=== PATIENT | male | born 1990 | race Caucasian/White ===

== ENCOUNTER 2019-12-20 09:02 | Emergency (ER) | payer OTHER ==
[~2019-12-20] VITALS: Ht 193 cm; Wt 95.2 kg
[2019-12-20] MEDS ORDERED: KEFLEX500 MG PO (11:23)
== END 2019-12-20 11:38 | disposition home or self-care (01) ==
LOC: ED 09:02
DX: S61.212A Laceration without foreign body of right middle finger without damage to nail, initial encounter (principal); S61.412A Laceration without foreign body of left hand, initial encounter; X58.XXXA Exposure to other specified factors, initial encounter
CPT/HCPCS: 12002; 99282

== ENCOUNTER 2024-02-04 14:59 | Emergency (ER) | payer OTHER ==
[~2024-02-04] VITALS: Ht 193 cm; Wt 96.9 kg
[~2024-02-04 14:59] MED LIST: CIPRO500 MG PO; HYDROCODON-ACE1 EA10 PO; KEFLEX500 MG PO; METRONIDAZOLE500 MG PO
[2024-02-04] MEDS ORDERED: ACETAMINOPHEN 500 MG TAB PO ONE (16:00)
[2024-02-04 17:08] VITALS: BP 122/88
== END 2024-02-04 17:08 | disposition home or self-care (01) ==
LOC: ED 14:59
DX: S06.9X1A Unspecified intracranial injury with loss of consciousness of 30 minutes or less, initial encounter (principal); S41.112A Laceration without foreign body of left upper arm, initial encounter; V86.59XA Driver of other special all-terrain or other off-road motor vehicle injured in nontraffic accident, initial encounter
CPT/HCPCS: 12002; 70450; 99284-25; A9270

== ENCOUNTER 2024-09-06 12:08 | Emergency (ER) | payer SELFPAY ==
[~2024-09-06] VITALS: Ht 193 cm; Wt 103.4 kg
[2024-09-06] MEDS ORDERED: FLUOXETINE HCL10 M1 PO (14:02)
[2024-09-06 15:38] VITALS: BP 146/97
== END 2024-09-06 15:38 | disposition home or self-care (01) ==
LOC: ED 12:08
DX: R20.2 Paresthesia of skin (principal); Z88.0 Allergy status to penicillin; Z79.899 Other long term (current) drug therapy
CPT/HCPCS: 99283

== ENCOUNTER 2024-12-05 20:41 | Emergency (ER) | payer SELFPAY ==
[~2024-12-05] VITALS: Ht 193 cm; Wt 107.9 kg
[~2024-12-05 20:41] MED LIST changes: +FLUOXETINE HCL10 M1 PO
[2024-12-05] MEDS ORDERED: ondansetron HCL 4 MG/2 ML VIAL IV ONE (21:30)
[2024-12-05 21:47] LABS: BASOPHILS 0.6 % (0-2); EOSINOPHILS 2.6 % (0-6); HEMATOCRIT 46.4 % (35.0-50.0); HEMOGLOBIN 16.2 g/dL (12.0-18.0); MCHC 34.9 g/dl (30-36); MCV 91.6 fl (81-99); MONOCYTES 14.3 % (0-12); NEUTROPHILS 53.5 % (39-80); PLATELET COUNT 269 K/uL (140-440); RBC 5.07 M/ul (4.3-5.7); RDW 12.7 (10.5-15.0)
[2024-12-05 21:57] LABS: BILIRUBIN, URINE NEGATIVE (negative); BLOOD/HGB, URINE NEGATIVE (Negative); KETONE, URINE NEGATIVE (Negative); LEUK ESTERASE, URINE NEGATIVE (negative); NITRITE, URINE NEGATIVE (negative); PH, URINE 5.5 (5-7)
[2024-12-05 21:58] LABS: CANNABINOID, URINE NEGATIVE (NEGATIVE)
[2024-12-05] MEDS ORDERED: FAMOTIDINE 20 MG/ 2 ML VIAL IV ONE (22:00)
[2024-12-05] MEDS ORDERED: LACTATED RINGER'S 1,000 ML IV ONE (22:00)
[2024-12-05] MEDS ORDERED: KETOROLAC TROMETHAMINE 30 MG/ML VIAL IV ONE (22:00)
[2024-12-05 22:01] LABS: ALBUMIN 4.1 g/dL (3.4-5.0); ALBUMIN/GLOBULIN RATIO 1.03 (1.1-2.4); ANION GAP 15.8 (7-21); BILIRUBIN, TOTAL 0.4 mg/dL (0.2-1.0); BUN/CREATININE RATIO 15.58 (6.0-28.6); CALCIUM 8.7 mg/dL (8.5-10.1); CREATININE, SERUM 0.77 mg/dL (0.70-1.30); POTASSIUM 3.8 mmol/L (3.5-5.1); PROTEIN, TOTAL 8.1 g/dL (6.4-8.2)
[2024-12-05 22:12] LABS: AMPHETAMINES, URINE NEGATIVE (NEGATIVE); BARBITURATES, URINE NEGATIVE (NEGATIVE); BENZODIAZEPINE, URINE NEGATIVE (NEGATIVE); BUPRENORPHINE, URINE NEGATIVE (NEGATIVE); COCAINE, URINE NEGATIVE (NEGATIVE); ECSTASY, URINE NEGATIVE (NEGATIVE); FENTANYL, URINE NEGATIVE (NEGATIVE); METHADONE, URINE NEGATIVE (NEGATIVE); OPIATES, URINE NEGATIVE (NEGATIVE); OXYCODONE, URINE NEGATIVE (NEGATIVE); PHENCYCLIDINE, URINE NEGATIVE (NEGATIVE)
[2024-12-05] MEDS ORDERED: CIPROFLOXACIN 500 MG TAB PO ONE (22:30)
[2024-12-05] MEDS ORDERED: CIPRO500 MG PO (22:35)
[2024-12-05] MEDS ORDERED: METRONIDAZOLE500 MG PO (22:36)
[2024-12-05 22:50] VITALS: BP 126/90
== END 2024-12-05 22:56 | disposition home or self-care (01) ==
LOC: ED 20:41
PROVIDERS: Internal Medicine
DX: K57.32 Diverticulitis of large intestine without perforation or abscess without bleeding (principal); Z88.0 Allergy status to penicillin; Z79.899 Other long term (current) drug therapy
CPT/HCPCS: 36415; 74177; 80053; 80307; 81003; 83690; 85025; 96375; 99284-25; G0480; J1885; J2405; Q9967